=== PATIENT | female | born 1985 | race Caucasian/White ===

== ENCOUNTER 2024-04-14 12:47 | Emergency (ER) | payer OTHER, SELFPAY ==
--- NOTE | ~2024-04-14 | XR_ITS ---
EXAMINATION:XR ankle RT 2V, XR foot RT 2V VIEWS ACQUIRED: Frontal lateral and oblique CLINICAL INFORMATION: Reason for Exam pain, injury COMPARISON: None available at the time of this dictation. FINDINGS: There is no evidence of acute fracture or dislocation. Intertarsal, tarsometatarsal, metatarsophalangeal and interphalangeal joints are intact. Surrounding soft tissues is normal. , Small inferior calcaneal spur. Ankle mortise is preserved. Medial and lateral malleoli are intact. Distal tibia and fibula included are normal. XR/XR foot RT 2V IMPRESSION: No fracture or dislocation.
--- NOTE | ~2024-04-14 | XR_ITS ---
EXAMINATION:XR ankle RT 2V, XR foot RT 2V VIEWS ACQUIRED: Frontal lateral and oblique CLINICAL INFORMATION: Reason for Exam pain, injury COMPARISON: None available at the time of this dictation. FINDINGS: There is no evidence of acute fracture or dislocation. Intertarsal, tarsometatarsal, metatarsophalangeal and interphalangeal joints are intact. Surrounding soft tissues is normal. , Small inferior calcaneal spur. Ankle mortise is preserved. Medial and lateral malleoli are intact. Distal tibia and fibula included are normal. XR/XR ankle RT 2V IMPRESSION: No fracture or dislocation.
--- NOTE | 2024-04-14 12:50 | ED.FALL ---
HPI - Fall General Chief Complaint: Extremity Injury, Lower Stated Complaint: fall off deck, R ankle inj Time Seen by Provider: 04/14/24 14:22 Source: patient and RN notes reviewed Mode of arrival: ambulatory Limitations: no limitations History of Present Illness ED Provider: Sabrina Keller PA-C [facility] Narrative: This is a 39-year-old female who presents emergency department with complaints of right ankle pain and foot pain since today. Patient states that she was stepping down off of her deck rolled her right ankle. She denies hitting her head or loss of consciousness. She has been unable to bear weight on her right ankle and foot secondary to pain. She states that during this injury she heard a couple snaps and pops in her ankle. Denies taking any medications at home to treat her current symptoms. Denies history of injury to her right ankle the past. No other complaints or concerns at this time. MD complaint: fall Onset (ago): minute(s) Fall from: standing Fall witnessed: yes, by family Place fall occurred: home Loss of consciousness: none Prolonged down time: no Symptoms prior to fall: none Context: tripped/slipped Related Data Previous Rx's ?Medication ?Instructions ?Recorded acetaminophen 650 mg 650 mg PO Q8H PRN pain #30 tabs 04/14/24 tablet,extended release (Tylenol 8 Hour) ibuprofen 600 mg tablet 600 mg PO Q6H PRN pain #30 tabs 04/14/24 Allergies Allergy/AdvReac Type Severity Reaction Status Date / Time adhesive Allergy Intermediate Rash Verified 04/14/24 12:53 Review of Systems Review of Systems: Yes all other systems are reviewed and are negative Constitutional: Constitutional: Reports as per [facility] Social History Social History Advance Directives: No Advance Directives Information Provided: Yes Do you have a plan to hurt others: No Plan Physical Exam Vital Signs: Vital Signs: Last Vital Signs Temp 97.3 F 04/14/24 15:37 Pulse 91 04/14/24 15:37 Resp 18 04/14/24 15:37 BP 162/82 H 04/14/24 15:37 Pulse Ox 98 04/14/24 15:37 O2 Del Method Room Air 04/14/24 15:37 BMI result Body Mass Index 33.4 Const: General: cooperative, comfortable and no acute distress Orientation/consciousness: patient oriented x3 Limitations: no limitations HEENT: Head: Yes normal to inspection, Yes normocephalic and Yes atraumatic Ears: hearing grossly normal bilaterally General nose exam: Normal external nose present Face and sinus: Yes normal facial exam Mouth: Normal oral and palatal mucosa present, oropharynx normal and moist mucous membranes Throat: Yes posterior oropharynx normal Eyes: General: appearance normal, both eyes and all related structures Eyelids: Yes eyelids normal Conjunctivae: conjunctivae normal Sclerae: sclerae normal Pupils: Equal, round and reactive pupils present EOM: EOMs intact bilaterally Neck: Neck: Yes normal visual inspection, Yes full ROM and Yes no lymphadenopathy Lymphatic: no lymphadenopathy noted Chest: Chest palpation & inspection: normal inspection of the chest Resp: Effort & Inspection: normal respiratory effort and able to speak in complete sentences Auscultation: clear to auscultation bilaterally, no crackles, no rales, no rhonchi and no wheezes Cardio: Rate: regular rate Rhythm: regular rhythm Heart sounds: S1 normal heart sound present and S2 normal heart sound present GI: Inspection: Yes normal to inspection Skin: General skin exam: no rashes or lesions noted Trauma: no lacerations or abrasions Wounds: no wounds Neuro: General: patient oriented x3 and moves all extremities Cranial nerves: Yes Equal, round and reactive pupils present Extrem: Other: Patient with tenderness palpation along the lateral malleolus with moderate edema noted, tenderness to palpation on all amongst the 2nd 3rd and 4th metatarsals, no 5th metatarsal tenderness to palpation, limited Daley and plantar flexion secondary to pain. No obvious bony deformity or swelling noted. No calf tenderness. Achilles tendon is intact. General: Yes normal to inspection Right upper extremity: normal to inspection Left upper extremity: normal to inspection Right lower extremity: normal to inspection Left lower extremity: normal to inspection Course Course Course Narrative: This is a rapid medical exam. deferred additional HPI, ROS, PE to primary provider. 39 yo female with history of high cholesterol, pre-diabetic here with complaints of fall off deck (2 stairs in elevation) twisting right ankle. Now having pain in foot and ankle. No head strike or LOC. Will obtain x-rays -Ting ZAMAN Medical Decision Making Medical Decision Making MDM Narrative: This is a 39-year-old female who presents to the emergency department with complaints of right ankle and foot pain after a mechanical fall which occurred today. No LOC or head strike. On arrival, blood pressure elevated at 162/82, all other vital signs within normal limits. She has been unable to bear weight on her right ankle and foot secondary to pain. Differential diagnoses include fracture, strain, sprain, contusion. X-rays were obtained, no acute bony abnormality seen. Discussed findings with patient. Given Brandyn wrap and crutches encouraged to follow-up with Orthopedics. Advised to rest, ice, elevate and take ibuprofen or Tylenol as needed pain. She understands and agrees with plan. Patient stable for discharge Differential Diagnosis Differential Diagnoses: The differential diagnosis associated with the presentation includes See above Radiology Impression Discussion of test interpretation with radiology: I have reviewed the radiologist's reading. Radiologist Impression: FINDINGS: There is no evidence of acute fracture or dislocation. Intertarsal, tarsometatarsal, metatarsophalangeal and interphalangeal joints are intact. Surrounding soft tissues is normal. , Small inferior calcaneal spur. Ankle mortise is preserved. Medial and lateral malleoli are intact. Distal tibia and fibula included are normal. XR/XR foot RT 2V IMPRESSION: No fracture or dislocation. Dictated By: Alondra Houston MD XR/XR ankle RT 2V IMPRESSION: No fracture or dislocation. Dictated By: Alondra Houston MD Discharge Plan Discharge Clinical Impression: Ankle sprain and strain Patient Disposition: Home, Self-Care Instructions: Ankle Sprain (ED), Crutch Instructions (ED), How to Use an Elastic Bandage (ED), R.I.C.E. Treatment (ED), Ice Pack Application (ED) Additional Instructions: Your x-ray did not show any bony abnormalities. Please rest, ice, use Brandyn wrap and crutches. Stay off your foot until you have no pain in your right ankle and foot. Gentle [id number] is important. Please follow-up with orthopedics, call tomorrow to make an appointment. You may follow-up with new [facility] as this has been your orthopedist in the past or you can follow-up with [facility]. The number is here for [facility]. Alternate between ibuprofen and Tylenol as needed for pain and symptoms. If any new or worsening symptoms occur including but not limited to worsening pain, redness, fevers, chest pain or shortness of breath, please return for re-evaluation. Prescriptions: New ibuprofen 600 mg tablet 600 mg PO Q6H PRN (Reason: pain) Qty: 30 0RF acetaminophen [Tylenol 8 Hour] 650 mg tablet extended release 650 mg PO Q8H PRN (Reason: pain) Qty: 30 0RF Referrals: [facility] [Provider Group] Interventions: ED Discharge Assessment Last Done: 04/14/24 15:37 Discharge Date/Time: 04/14/24 15:38 Print Language: Gambian
[2024-04-14 12:51] VITALS: BP 162/82; PULSE 91; RESP 18; TEMP 36.3; O2SAT 98; BMI 33.4
[2024-04-14 15:37] VITALS: BP 162/82; PULSE 91; RESP 18; TEMP 36.3; O2SAT 98
== END 2024-04-14 15:38 | disposition home or self-care (01) ==
PROVIDERS: Emergency Provider Emergency Medicine; PCP Internal Medicine
DX: S93.401A Sprain of unspecified ligament of right ankle, initial encounter (principal); M25.571 Pain in right ankle and joints of right foot; W10.9XXA Fall (on) (from) unspecified stairs and steps, initial encounter; Y93.9 Activity, unspecified; Y92.007 Garden or yard of unspecified non-institutional (private) residence as the place of occurrence of the external cause; Y99.8 Other external cause status
CPT/HCPCS: 73600; 73620; 99282; 99283